=== PATIENT | female | born 1965 | race Caucasian/White ===

== ENCOUNTER 2016-10-13 10:23 | Emergency (ER) | payer OTHER ==
[2016-10-13 10:41] VITALS: RESP 16; O2SAT 98
--- NOTE | 2016-10-13 11:25 | EDPHY ---
H & P Time Seen by Provider: 10/13/16 10:55 HPI/ROS: CHIEF COMPLAINT: Dizziness HISTORY OF PRESENT ILLNESS: Patient has a history of vertigo which was several years ago and much more severe in nature than today's symptoms. She did have a little bit of lightheadedness yesterday after riding her bicycle for 1 hour. Today she says that she felt "funny when I woke up." She describes dizziness and says that when she would move her head she felt "vibrations" in her head or a "buzzing" sensation. This is accompanied with nausea and a very mild headache. The symptoms definitely are worse if she moves her head especially to the left. She did not have any actual vomiting. No double vision. No neck pain or recent injury. She does have chronic tinnitus which is unchanged. No difficulty with hearing. No ataxia or trouble maintaining her balance. REVIEW OF SYSTEMS: Eye: no change in vision ENT: No hearing loss. Cardiac: No syncope or chest pain Pulmonary: Not short of breath Abdomen: No vomiting or abdominal pain Musculoskeletal: no back pain or neck pain or leg swelling Skin: no rash Neuro: HPI Constitutional: no fever : no urinary symptoms, no change in urination A comprehensive 10 point review of systems is otherwise negative aside from elements mentioned in the history of present illness. PAST MEDICAL HISTORY: Previous vertigo, hypothyroid, asthma. Social history: Primary care in [place]. No drug or alcohol use. General Appearance: Alert and conversant, cooperative. Eyes: No scleral icterus. Extraocular motion intact but nystagmus with looking laterally to the left. ENT, Mouth: Normal mucous membranes. Normal tympanic membranes. No facial swelling. Respiratory: Normal respiratory effort, breath sounds equal, lungs are clear to auscultation. Cardiovascular: Regular rate and rhythm. Gastrointestinal: Abdomen is soft and non tender. Neurological: Alert and oriented x3. Normally conversant, fluent speech. Face symmetric, normal movement and sensation in all extremities. Normal finger-to- nose and no pronator drift. Looking with her eyes to the left reproduces her symptoms. Not ataxic. Skin: Warm and dry, no rashes. Musculoskeletal: No peripheral edema and no joint swelling. Normal range of motion of the neck. Psychiatric: Not agitated. Emergency Department course/MDM: I think it is most likely that she has peripheral vertigo which is just not as severe as her symptoms from several years ago. She does have lateral nystagmus and her symptoms are triggered by looking certain direction, a sense of "vibrations" as movement. She does not have any cerebellar dysfunction objectively on examination. She was worried about her blood pressure which was elevated at home and a slightly elevated here. She does remember the last time she was at her extrusion former and they told her her blood pressure was slightly elevated and should be rechecked. I think it is unlikely that she is having acute hypertensive emergency without end-organ dysfunction on history and physical. Patient would prefer to be discharged without any imaging or outpatient prescriptions. She is reassured that I think that her blood pressure is not likely the cause of her symptoms today. I think it is unlikely she is having cerebellar stroke or vertebral dissection. She will call her primary care physician today to arrange blood pressure follow- up which I think is reasonable. Smoking Status: Never smoked Constitutional: Initial Vital Signs Temperature (C) 36.8 C 10/13/16 10:37 Heart Rate 76 10/13/16 10:37 Respiratory Rate 16 10/13/16 10:37 Blood Pressure 163/117 H 10/13/16 10:37 O2 Sat (%) 98 10/13/16 10:37 O2 Delivery Mode Room Air Allergies/Adverse Reactions: morphine Allergy (Verified 10/13/16 10:40) Home Medications: Medication Instructions Recorded Estrogens,Conjugated 10/13/16 Progesterone [Progesterone in Oil] 10/13/16 Synthroid 10/13/16 Venlafaxine HCl [Effexor] 10/13/16 MDM/Departure - Depart Disposition: Home, Routine, Self-Care Clinical Impression: Hypertension, Peripheral vertigo Condition: Good Instructions: Hypertension (ED) Additional Instructions: I think the most likely reason for your symptoms is a mild form of vertigo. Please follow-up with your regular doctor for your blood pressure; call today and get a follow-up appointment in the next week. Referrals: Medical, [place] [Other] - As per Instructions (your PCP in [place])
[2016-10-13 11:59] VITALS: BP 181/105; PULSE 78; TEMP 98.8
== END 2016-10-13 11:58 | disposition home or self-care (01) ==
DX: R42 Dizziness and giddiness (principal); I10 Essential (primary) hypertension; J45.909 Unspecified asthma, uncomplicated